=== PATIENT | male | born 1930 | race Caucasian/White ===

== ENCOUNTER 2019-11-18 14:25 | Observation (INO) ==
[2019-11-18] MEDS ORDERED: SODIUM CHLORIDE 0.9% 1,000 ML IV STA (14:58)
[2019-11-18 15:22] LABS: Basophils % 0.6 % (0.0-0.8); Eosinophils # 0.1 10*3/uL (0.0-0.87); Eosinophils % 1.4 % (0.00-10.9); Hematocrit 43.2 VOL% (42.0-52.0); Hemoglobin 13.8 GM/DL (14.0-18.0); Immature Granulocytes % 0.2 %; Immature Granulocytes Absolute 0.01 #; Lymphocytes # 1.4 10*3/uL (1.4-4.0); Lymphocytes % 28.2 % (21.2-54.2); Mean Corpuscular HGB Conc 31.9 GM/DL (32-36); Mean Corpuscular Volume 100.7 FL (87-102); Mean Platelet Volume 11.1 FL (9.6-12.0); Monocytes % 11.6 % (1.7-12.7); Platelet Count 149 T/CUMM (130-400); Red Blood Count 4.29 MC/CUMM (3.8-5.5); Red Cell Distribution Width 12.6 % (9.3-17.3); White Blood Count 4.9 T/CUMM (4-12)
[2019-11-18 15:30] LABS: INR 1.4; PT Patient Result 14.9 SECS (9.6-12.2)
[2019-11-18 16:01] LABS: Albumin 3.5 G/DL (3.4-5.0); Calcium 9.4 MG/DL (8.5-10.1); Osmolality,Calculated 282.8 MOS/KG (273-304); Total Protein 7.1 G/DL (6.4-8.3)
[2019-11-18 17:21] LABS: Apearance,Urine CLEAR (Clear); Bacteria,Urine Occasional /HPF (Few); Bilirubin,Urine Negative (Negative); Blood, Urine Negative (Negative); Glucose,Urine (UA) Negative (Negative); Hyaline Casts,Urine 7 /LPF (0-3); Ketones,Urine Negative (Negative); Nitrite,Urine Negative (Negative); Protein,Urine Negative; RBC,Urine 1 /HPF (0-4); Squamous Epithelial Cell,Urine Occasional /HPF (0-10); Urine Color Yellow (Yellow); Urine Specific Gravity 1.011 (1.001-1.035); Urine Urobilinogen < 2.0 EU/DL (0.2-1.0); WBC,Urine 1 /HPF (0-6)
[2019-11-18] MEDS ORDERED: CLINDAMYCIN INJ 900 MG in PREMIX 1 EACH IV STA (18:52)
[2019-11-18] MEDS ORDERED: ONDANSETRON 4 MG/2 ML VIAL IV PRN (19:59)
[2019-11-18] MEDS ORDERED: TAPENTADOL 100 MG PO PRN (22:19)
[2019-11-18] MEDS: traZODone 50 MG TABLET PO SCH (22:42)
[2019-11-18] MEDS: ACETAMINOPHEN 325 MG TABLET PO PRN (22:42)
[2019-11-18] MEDS: PREGABALIN 100 MG CAPSULE PO SCH (22:42)
[2019-11-18] MEDS: HydrOXYzine PAMOATE 25 MG CAPSULE PO SCH (23:07)
[2019-11-19] MEDS: CLINDAMYCIN INJ 900 MG in PREMIX 1 EACH IV SCH ×3 (02:28→18:05)
[2019-11-19 05:05] LABS: Troponin I 0.093 NG/ML (0.00-0.045)
[2019-11-19] MEDS: PREGABALIN 75 MG CAPSULE PO SCH ×2 (08:58→17:10)
[2019-11-19] MEDS: RIVAROXABAN 20 MG TABLET PO SCH (08:59)
[2019-11-19] MEDS: PANTOPRAZOLE 40 MG TABLET PO SCH (08:59)
[2019-11-19] MEDS: lisinopriL 20 MG TABLET PO SCH (08:59)
[2019-11-19] MEDS: TAMSULOSIN 0.4 MG CAPSULE PO SCH (17:10)
[2019-11-19] MEDS: ACETAMINOPHEN 325 MG TABLET PO PRN (21:33)
[2019-11-19] MEDS: PREGABALIN 100 MG CAPSULE PO SCH (21:33)
[2019-11-19] MEDS: HydrOXYzine PAMOATE 25 MG CAPSULE PO SCH (21:34)
[2019-11-19] MEDS: traZODone 50 MG TABLET PO SCH (21:34)
[2019-11-20] MEDS: CLINDAMYCIN INJ 900 MG in PREMIX 1 EACH IV SCH ×3 (04:19→18:51)
[2019-11-20] MEDS: RIVAROXABAN 20 MG TABLET PO SCH (08:47)
[2019-11-20] MEDS: PREGABALIN 75 MG CAPSULE PO SCH ×2 (08:47→16:55)
[2019-11-20] MEDS: lisinopriL 20 MG TABLET PO SCH (08:48)
[2019-11-20] MEDS: PANTOPRAZOLE 40 MG TABLET PO SCH (08:48)
[2019-11-20] MEDS: TAMSULOSIN 0.4 MG CAPSULE PO SCH (18:51)
[2019-11-20] MEDS: traZODone 50 MG TABLET PO SCH (22:24)
[2019-11-20] MEDS: ACETAMINOPHEN 325 MG TABLET PO PRN (22:24)
[2019-11-20] MEDS: HydrOXYzine PAMOATE 25 MG CAPSULE PO SCH (22:24)
[2019-11-20] MEDS: PREGABALIN 100 MG CAPSULE PO SCH (22:28)
[2019-11-21] MEDS: CLINDAMYCIN INJ 900 MG in PREMIX 1 EACH IV SCH ×2 (04:16→10:23)
[2019-11-21 05:29] LABS: Basophils % 0.5 % (0.0-0.8); Eosinophils # 0.1 10*3/uL (0.0-0.87); Eosinophils % 2.4 % (0.00-10.9); Hematocrit 40.2 VOL% (42.0-52.0); Hemoglobin 13.1 GM/DL (14.0-18.0); Immature Granulocytes % 0.3 %; Immature Granulocytes Absolute 0.02 #; Lymphocytes # 1.7 10*3/uL (1.4-4.0); Lymphocytes % 28.6 % (21.2-54.2); Mean Corpuscular HGB Conc 32.6 GM/DL (32-36); Monocytes % 11.5 % (1.7-12.7); Neutrophils % 56.7 % (38.7-73.9); Platelet Count 137 T/CUMM (130-400); White Blood Count 5.8 T/CUMM (4-12)
[2019-11-21 05:56] LABS: Calcium 9.1 MG/DL (8.5-10.1); Osmolality,Calculated 297.3 MOS/KG (273-304)
[2019-11-21] MEDS: PREGABALIN 75 MG CAPSULE PO SCH ×2 (08:40→15:48)
[2019-11-21] MEDS: PANTOPRAZOLE 40 MG TABLET PO SCH (08:40)
[2019-11-21] MEDS: RIVAROXABAN 20 MG TABLET PO SCH (08:40)
[2019-11-21] MEDS: lisinopriL 20 MG TABLET PO SCH (08:40)
[2019-11-21] MEDS ORDERED: ASPIRIN CHEW 81 MG TABLET PO SCH (11:35)
[2019-11-21] MEDS: PIPERACILLIN/TAZOBACTAM 3,375 MG in SODIUM CHLORIDE 0.9% 100 ML IV SCH (15:43)
[2019-11-21] MEDS: TAMSULOSIN 0.4 MG CAPSULE PO SCH (17:23)
[2019-11-21] MEDS: PREGABALIN 100 MG CAPSULE PO SCH (21:41)
[2019-11-21] MEDS: traZODone 50 MG TABLET PO SCH (21:41)
[2019-11-21] MEDS: HydrOXYzine PAMOATE 25 MG CAPSULE PO SCH (21:42)
[2019-11-22] MEDS: PIPERACILLIN/TAZOBACTAM 3,375 MG in SODIUM CHLORIDE 0.9% 100 ML IV SCH ×4 (01:13→23:59)
[2019-11-22] MEDS: PANTOPRAZOLE 40 MG TABLET PO SCH (08:21)
[2019-11-22] MEDS: RIVAROXABAN 20 MG TABLET PO SCH (08:21)
[2019-11-22] MEDS: PREGABALIN 75 MG CAPSULE PO SCH ×2 (08:21→16:10)
[2019-11-22] MEDS: TAMSULOSIN 0.4 MG CAPSULE PO SCH (17:04)
[2019-11-22] MEDS: traZODone 50 MG TABLET PO SCH (20:13)
[2019-11-22] MEDS: HydrOXYzine PAMOATE 25 MG CAPSULE PO SCH (20:13)
[2019-11-22] MEDS: PREGABALIN 100 MG CAPSULE PO SCH (20:16)
[2019-11-23] MEDS: ACETAMINOPHEN 325 MG TABLET PO PRN (02:21)
[2019-11-23 05:34] LABS: Basophils # 0.1 10*3/uL (0.0-0.2); Basophils % 0.8 % (0.0-0.8); Eosinophils # 0.2 10*3/uL (0.0-0.87); Eosinophils % 3.3 % (0.00-10.9); Hematocrit 43.9 VOL% (42.0-52.0); Immature Granulocytes % 0.2 %; Immature Granulocytes Absolute 0.01 #; Lymphocytes # 1.7 10*3/uL (1.4-4.0); Lymphocytes % 27.5 % (21.2-54.2); Mean Corpuscular HGB Conc 31.9 GM/DL (32-36); Mean Corpuscular Volume 100.2 FL (87-102); Mean Platelet Volume 11.2 FL (9.6-12.0); Monocytes % 9.6 % (1.7-12.7); Neutrophils % 58.6 % (38.7-73.9); Platelet Count 138 T/CUMM (130-400); Red Blood Count 4.38 MC/CUMM (3.8-5.5); Red Cell Distribution Width 12.7 % (9.3-17.3); White Blood Count 6.3 T/CUMM (4-12)
[2019-11-23 05:51] LABS: Calcium 9.3 MG/DL (8.5-10.1); Osmolality,Calculated 288.5 MOS/KG (273-304)
[2019-11-23] MEDS: PREGABALIN 75 MG CAPSULE PO SCH ×2 (08:08→15:13)
[2019-11-23] MEDS: PIPERACILLIN/TAZOBACTAM 3,375 MG in SODIUM CHLORIDE 0.9% 100 ML IV SCH ×2 (08:08→15:13)
[2019-11-23] MEDS: PANTOPRAZOLE 40 MG TABLET PO SCH (08:08)
[2019-11-23] MEDS: RIVAROXABAN 20 MG TABLET PO SCH (08:08)
[2019-11-23 11:48] VITALS: BP 126/99
== END 2019-11-23 15:59 | disposition home or self-care (01) ==
LOC: EDUNIT# → EDBD → N.EDINP 14:25 → N.ED 14:25 → N.TELEN 20:34
PROVIDERS: ADMIT Family Medicine; ATTEND Family Medicine

== ENCOUNTER 2020-09-06 08:13 | Inpatient (IN) ==
[2020-09-06 08:41] LABS: Basophils % 0.3 % (0.0-0.8); Eosinophils % 0.2 % (0.00-10.9); Hematocrit 44.3 VOL% (42.0-52.0); Hemoglobin 15.1 GM/DL (14.0-18.0); Immature Granulocytes % 0.3 %; Immature Granulocytes Absolute 0.03 #; Lymphocytes # 1.1 10*3/uL (1.4-4.0); Lymphocytes % 11.3 % (21.2-54.2); Mean Corpuscular HGB Conc 34.1 GM/DL (32-36); Mean Corpuscular Volume 94.3 FL (87-102); Mean Platelet Volume 10.5 FL (9.6-12.0); Monocytes % 8.1 % (1.7-12.7); Neutrophils % 79.8 % (38.7-73.9); Platelet Count 169 T/CUMM (130-400); Red Cell Distribution Width 13.2 % (9.3-17.3); White Blood Count 9.5 T/CUMM (4-12)
[2020-09-06 08:52] LABS: INR 1.1; PT Patient Result 11.9 SECS (9.8-11.9); Partial Thromboplastin Time 30.2 SECS (23.9-33.8)
[2020-09-06 10:01] LABS: Alanine Aminotransferase 16 U/L (16-61); Albumin 3.7 G/DL (3.4-5.0); Alkaline Phosphatase 92 U/L (45-117); Aspartate Amino Transferase 24 U/L (0-37); Blood Urea Nitrogen 16 MG/DL (7-18); Calcium 9.5 MG/DL (8.5-10.1); Estimated Glom Filtration Rate 82 ML/MIN; Glucose 106 MG/DL (74-106); Osmolality,Calculated 277.5 MOS/KG (273-304); Total Protein 8.1 G/DL (6.4-8.3)
[2020-09-06 10:08] LABS: Barbiturates Screen,Urine Negative (Negative); Benzodiazepines Screen,Urine Negative (Negative); Cannabinoid Screen,Urine Negative (Negative); Opiate Screen,Urine Negative (Negative); Phencyclidine Screen,Urine Negative (Negative)
[2020-09-06 10:14] LABS: Bilirubin,Urine Negative (Negative); Blood, Urine Small mg/dL (Negative); Glucose,Urine (UA) Negative (Negative); Hyaline Casts,Urine 1 /LPF (0-3); Ketones,Urine Negative (Negative); Nitrite,Urine Negative (Negative); Protein,Urine 100 MG/DL; RBC,Urine 2 /HPF (0-4); Urine Appearance CLEAR (Clear); Urine Color Yellow (Yellow); Urine Specific Gravity 1.014 (1.001-1.035); Urine Urobilinogen < 2.0 EU/DL (0.2-1.0); WBC,Urine 1 /HPF (0-6)
[2020-09-06] MEDS ORDERED: ONDANSETRON 4 MG/2 ML VIAL IV PRN (12:00)
[2020-09-06] MEDS ORDERED: ACETAMINOPHEN 325 MG TABLET PO PRN (12:00)
[2020-09-06] MEDS: ENOXAPARIN 40 MG/0.4 ML SYRINGE SUBCUT SCH (12:39)
[2020-09-06] MEDS: SODIUM CHLORIDE 0.9% 1,000 ML IV SCH ×2 (12:39→22:42)
[2020-09-06] MEDS: DOCUSATE SODIUM 100 MG CAPSULE PO SCH (22:04)
[2020-09-07 05:29] LABS: Basophils % 0.3 % (0.0-0.8); Hematocrit 44.5 VOL% (42.0-52.0); Immature Granulocytes % 0.4 %; Immature Granulocytes Absolute 0.05 #; Lymphocytes # 1.1 10*3/uL (1.4-4.0); Lymphocytes % 9.6 % (21.2-54.2); Mean Corpuscular HGB Conc 33.7 GM/DL (32-36); Mean Corpuscular Volume 94.9 FL (87-102); Mean Platelet Volume 10.2 FL (9.6-12.0); Monocytes % 8.3 % (1.7-12.7); Neutrophils % 81.4 % (38.7-73.9); Platelet Count 181 T/CUMM (130-400); Red Blood Count 4.69 MC/CUMM (3.8-5.5); Red Cell Distribution Width 12.9 % (9.3-17.3); White Blood Count 11.7 T/CUMM (4-12)
[2020-09-07 05:53] LABS: Osmolality,Calculated 287.1 MOS/KG (273-304)
[2020-09-07] MEDS: SODIUM CHLORIDE 0.9% 1,000 ML IV SCH ×4 (06:23→23:25)
[2020-09-07] MEDS: DOCUSATE SODIUM 100 MG CAPSULE PO SCH ×2 (08:33→21:25)
[2020-09-07] MEDS: PANTOPRAZOLE 40 MG TABLET PO SCH (08:34)
[2020-09-07] MEDS: hydrALAZINE 20 MG/1 ML VIAL IV PRN ×2 (08:38→23:25)
[2020-09-07] MEDS: ENOXAPARIN 40 MG/0.4 ML SYRINGE SUBCUT SCH (13:17)
[2020-09-08] MEDS: SODIUM CHLORIDE 0.9% 1,000 ML IV SCH ×3 (05:09→20:08)
[2020-09-08] MEDS ORDERED: ceFAZolin 1,000 MG in SYRINGE 1 EACH IV ONE (09:18)
[2020-09-08] MEDS ORDERED: LACTATED RINGERS 1,000 ML IV SCH (09:30)
[2020-09-08] MEDS: DOCUSATE SODIUM 100 MG CAPSULE PO SCH ×2 (09:32→20:07)
[2020-09-08] MEDS: PANTOPRAZOLE 40 MG TABLET PO SCH (11:55)
[2020-09-08] MEDS ORDERED: LABETALOL 20 MG/4 ML SYRINGE IV ONE (12:17)
[2020-09-08] MEDS ORDERED: GLYCOPYRROLATE 0.4 MG/2 ML VIAL ONE (14:01)
[2020-09-08] MEDS ORDERED: LIDOCAINE 2% 5 ML VIAL ONE (14:01)
[2020-09-08] MEDS ORDERED: propofoL 200 MG/20 ML VIAL IV ONE (14:01)
[2020-09-08] MEDS: hydrALAZINE 20 MG/1 ML VIAL IV PRN (20:07)
[2020-09-09] MEDS: DOCUSATE SODIUM 100 MG CAPSULE PO SCH ×2 (09:12→20:48)
[2020-09-09] MEDS: PANTOPRAZOLE 40 MG TABLET PO SCH (09:12)
[2020-09-09] MEDS: SODIUM CHLORIDE 0.9% 1,000 ML IV SCH ×2 (09:16→13:02)
[2020-09-10] MEDS: hydrALAZINE 20 MG/1 ML VIAL IV PRN ×2 (00:05→20:45)
[2020-09-10] MEDS: SODIUM CHLORIDE 0.9% 1,000 ML IV SCH ×4 (00:45→20:45)
[2020-09-10] MEDS: PANTOPRAZOLE 40 MG TABLET PO SCH (09:36)
[2020-09-10] MEDS: DOCUSATE SODIUM 100 MG CAPSULE PO SCH ×2 (10:24→20:29)
[2020-09-10 10:52] LABS: Risk Ratio 3.16; VLDL CHOLESTEROL 12.4 MG/DL
[2020-09-10] MEDS: ERYTHROMYCIN 0.5% OPHT OINT 3.5 GM TUBE BOTH EYES SCH (16:55)
[2020-09-11 05:49] LABS: Calcium 8.8 MG/DL (8.5-10.1); Osmolality,Calculated 294.8 MOS/KG (273-304)
[2020-09-11 06:39] LABS: Basophils # 0.1 10*3/uL (0.0-0.2); Basophils % 0.4 % (0.0-0.8); Eosinophils % 0.2 % (0.00-10.9); Hematocrit 43.2 VOL% (42.0-52.0); Hemoglobin 14.2 GM/DL (14.0-18.0); Immature Granulocytes % 0.6 %; Immature Granulocytes Absolute 0.07 #; Lymphocytes % 8.2 % (21.2-54.2); Mean Corpuscular HGB Conc 32.9 GM/DL (32-36); Mean Corpuscular Volume 97.5 FL (87-102); Mean Platelet Volume 10.7 FL (9.6-12.0); Monocytes % 10.6 % (1.7-12.7); Platelet Count 151 T/CUMM (130-400); Red Blood Count 4.43 MC/CUMM (3.8-5.5); Red Cell Distribution Width 13.6 % (9.3-17.3); White Blood Count 12.5 T/CUMM (4-12)
[2020-09-11] MEDS: DOCUSATE SODIUM 100 MG CAPSULE PO SCH ×2 (08:50→20:50)
[2020-09-11] MEDS: PANTOPRAZOLE 40 MG TABLET PO SCH (08:50)
[2020-09-11] MEDS: ERYTHROMYCIN 0.5% OPHT OINT 3.5 GM TUBE BOTH EYES SCH (08:50)
[2020-09-11] MEDS ORDERED: TUBERCULIN SKIN TEST 0.1 ML SYRINGE INTRADERM ONE (10:55)
[2020-09-11] MEDS: SODIUM CHLORIDE 0.9% 1,000 ML IV SCH ×2 (13:29→13:30)
[2020-09-12] MEDS: SODIUM CHLORIDE 0.9% 1,000 ML IV SCH ×2 (02:34→16:20)
[2020-09-12] MEDS: ERYTHROMYCIN 0.5% OPHT OINT 3.5 GM TUBE BOTH EYES SCH (08:58)
[2020-09-12] MEDS: PANTOPRAZOLE 40 MG TABLET PO SCH (08:58)
[2020-09-12] MEDS: DOCUSATE SODIUM 100 MG CAPSULE PO SCH ×2 (08:58→20:30)
[2020-09-12] MEDS: hydrALAZINE 20 MG/1 ML VIAL IV PRN (12:45)
[2020-09-13] MEDS: SODIUM CHLORIDE 0.9% 1,000 ML IV SCH (05:28)
[2020-09-13] MEDS: ERYTHROMYCIN 0.5% OPHT OINT 3.5 GM TUBE BOTH EYES SCH (07:22)
[2020-09-13] MEDS: DOCUSATE SODIUM 100 MG CAPSULE PO SCH ×2 (08:25→20:26)
[2020-09-13] MEDS: PANTOPRAZOLE 40 MG TABLET PO SCH (08:26)
[2020-09-14 05:27] LABS: Calcium 8.9 MG/DL (8.5-10.1); Osmolality,Calculated 295.7 MOS/KG (273-304)
[2020-09-14] MEDS: ERYTHROMYCIN 0.5% OPHT OINT 3.5 GM TUBE BOTH EYES SCH (10:28)
[2020-09-14] MEDS: DOCUSATE SODIUM 100 MG CAPSULE PO SCH ×2 (10:29→20:46)
[2020-09-14] MEDS: PANTOPRAZOLE 40 MG TABLET PO SCH (10:29)
[2020-09-15] MEDS: DOCUSATE SODIUM 100 MG CAPSULE PO SCH ×2 (11:06→21:36)
[2020-09-15] MEDS: ERYTHROMYCIN 0.5% OPHT OINT 3.5 GM TUBE BOTH EYES SCH (11:06)
[2020-09-15] MEDS: PANTOPRAZOLE 40 MG TABLET PO SCH (11:06)
[2020-09-16] MEDS: MORPHINE 4 MG/1 ML VIAL IV PRN ×2 (05:01→21:21)
[2020-09-16] MEDS: ERYTHROMYCIN 0.5% OPHT OINT 3.5 GM TUBE BOTH EYES SCH (11:17)
[2020-09-16] MEDS: PANTOPRAZOLE 40 MG TABLET PO SCH (11:18)
[2020-09-16] MEDS: DOCUSATE SODIUM 100 MG CAPSULE PO SCH ×2 (11:18→21:21)
[2020-09-17] MEDS: PANTOPRAZOLE 40 MG TABLET PO SCH (09:30)
[2020-09-17] MEDS: ERYTHROMYCIN 0.5% OPHT OINT 3.5 GM TUBE BOTH EYES SCH (09:30)
[2020-09-17] MEDS: DOCUSATE SODIUM 100 MG CAPSULE PO SCH ×2 (09:30→20:45)
[2020-09-18] MEDS: PANTOPRAZOLE 40 MG TABLET PO SCH (09:23)
[2020-09-18] MEDS: DOCUSATE SODIUM 100 MG CAPSULE PO SCH (09:23)
[2020-09-18] MEDS: ERYTHROMYCIN 0.5% OPHT OINT 3.5 GM TUBE BOTH EYES SCH (09:51)
[2020-09-18 16:45] VITALS: BP 132/69
== END 2020-09-18 18:00 | disposition hospice, home (50) | DRG 65 ==
LOC: EDSEX → N.ED 08:13 → N.EDINP 09:47 → N.TELEN 12:00
PROVIDERS: ADMIT Family Medicine; ATTEND Family Medicine
PROC: EGDWPEG (ICD-10-PCS; 2020-09-08 12:35)